=== PATIENT | female | born 1950 | race Two or more races ===

== ENCOUNTER 2017-07-19 14:59 | Emergency (ER) | payer OTHER ==
[~2017-07-19] VITALS: Ht 157.5 cm; Wt 97.5 kg
[2017-07-19] MEDS ORDERED: SKELAXIN800 MG PO (19:27)
[2017-07-19] MEDS ORDERED: CELEBREX200MG PO (19:27)
== END 2017-07-19 19:34 | disposition home or self-care (01) ==
LOC: ER 14:59
DX: S80.01XA Contusion of right knee, initial encounter (principal); S30.0XXA Contusion of lower back and pelvis, initial encounter; W01.198A Fall on same level from slipping, tripping and stumbling with subsequent striking against other object, initial encounter; Y93.01 Activity, walking, marching and hiking; Y92.480 Sidewalk as the place of occurrence of the external cause; Y99.8 Other external cause status